=== PATIENT | female | born 1985 | race African-American/Black ===

== ENCOUNTER 2017-04-10 06:57 | Day surgery (SDC) | payer MEDICARE ==
[~2017-04-10] VITALS: Ht 162.6 cm; Wt 134.1 kg
--- NOTE | ~2017-04-10 | OP ---
PATIENT NAME: BARBIE MCKEE MEDICAL RECORD: [id number] :89 LOCATION:[facility] ADMISSION DATE: SURGEON: CHASITY BRADFORD DO DATE OF OPERATION: 04/10/2017 PROCEDURE: Colonoscopy. INDICATIONS FOR PROCEDURE: Change in bowel habits, generalized abdominal pain, constipation, nausea. SCOPE: Olympus video pediatric colonoscope. MEDICATIONS: Propofol 380 mg IV per anesthesia. WITHDRAWAL: 9 minutes. COMPLICATIONS: None. ESTIMATED BLOOD LOSS: None. FINDINGS: Informed consent was given. The patient was made comfortable with the above medication. After reaching an adequate level of sedation by slow IV push, the patient was placed on her left side. A digital rectal examination was performed, which was normal. The endoscope was then advanced under direct visualization through the rectum to the terminal ileum. The scope was slowly withdrawn and mucosa was carefully examined. The prep quality was good. There were no abnormalities visualized on today examination. There were no diverticula seen or polyps. Retroflexion was performed in the rectum with normal-appearing rectal wall. The endoscope was completely withdrawn from the patient. The patient tolerated the procedure well and there were no complications. IMPRESSION: Normal colonoscopy to terminal ileum. PLAN AND RECOMMENDATIONS: 1. Discharge home when recovery parameters are met. 2. High fiber diet. 3. Continue current medications. 4. Supplement diet with 2 tablespoons of Metamucil or psyllium husk fiber daily. 5. Proceed with upper endoscopy as scheduled. TRANSINT:[id number] Voice Confirmation ID: [id number] DOCUMENT ID: [id number] CHASITY BRADFORD DO at 1225 CC: [id number] DICTATION DATE: 04/10/17923 LOAN SECRETARY: 04/10/17 1123 [facility] 04/10/17 [place] [address]
[2017-04-10 07:49] VITALS: BP 127/77; Ht 162.6 cm; Wt 134.1 kg
[2017-04-10 08:01] LABS: HCG URINE NEGATIVE (NEGATIVE)
[2017-04-10 09:01] LABS: HEMATOCRIT 34.1 % (36.0-48.0); HEMOGLOBIN 11.1 g/dL (12-16); MCH 25.8 pg (26.0-34.0); MCHC 32.6 g/dL (31.0-37.0); MCV 79.1 fL (80.0-100.0); MEAN PLATELET VOLUME 10.8 fL (7.4-10.4); RBC 4.31 10x6/uL (4.00-5.40); RDW 14.5 % (11.5-14.5); WBC 7.7 10x3/uL (4.8-10.8)
[2017-04-10 09:04] LABS: CALC OSMOLALITY 271 mosm/kg (275-300); CALCIUM 9.1 mg/dL (8.5-10.1); CARBON DIOXIDE 25.2 mmol/L (21.0-32.0); CHLORIDE - SERUM 102 mmol/L (98-107); CREATININE - SERUM 0.7 mg/dL (0.6-1.3); GLUCOSE 102 mg/dL (74-106); POTASSIUM - SERUM 4.2 mmol/L (3.5-5.1); SODIUM 137 mmol/L (136-145); UREA NITROGEN 6 mg/dL (7-18); eGFR NON AFRICAN AMERICAN > 90 mL/min (90-120)
== END 2017-04-10 10:30 | disposition home or self-care (01) ==
LOC: D.OPS 06:57
PROVIDERS: Anesthesiology; Internal Medicine Gastroenterology
DX: R10.84 Generalized abdominal pain (principal); K59.00 Constipation, unspecified; R11.0 Nausea; Z01.812 Encounter for preprocedural laboratory examination

== ENCOUNTER 2017-04-17 08:39 | Day surgery (SDC) | payer MEDICARE ==
[~2017-04-17] VITALS: Ht 162.6 cm; Wt 134.1 kg
--- NOTE | ~2017-04-17 | OP ---
PATIENT NAME: BARBIE MCKEE MEDICAL RECORD: [id number] :87 LOCATION:[facility] ADMISSION DATE: SURGEON: CHASITY BRADFORD DO DATE OF OPERATION: 04/17/2017 PROCEDURE: EGD with biopsies. INDICATIONS FOR PROCEDURE: Epigastric abdominal pain as well as generalized pain, nausea, constipation. SCOPE: Olympus video gastroscope. MEDICATIONS: Propofol 250 mg IV per anesthesia. ESTIMATED BLOOD LOSS: Minimal. COMPLICATIONS: None. FINDINGS: Informed consent was given. The patient was made comfortable with the above medication. After reaching an adequate level of sedation by slow IV push, the patient was placed on her left side. The endoscope was then advanced under direct visualization through the mouth to the second portion of the duodenum. The upper, middle, and lower thirds of the esophagus appeared normal. At the GE junction, there was mild evidence of LA class A reflux-induced esophagitis. The endoscope was advanced beyond the GE junction into the stomach and retroflexed to view the cardia, where a small sliding type hiatal hernia was present. The fundus, body, antrum, and prepyloric regions of the stomach appeared normal. Random biopsies were taken to submit for histopathology and to rule out H pylori. The endoscope was advanced beyond the pylorus into the duodenum where the bulb, first portion, and second portion of the duodenum appeared normal. The endoscope was then withdrawn from the patient. The patient tolerated the procedure well and there were no complications. IMPRESSION: 1. LA class A reflux induced esophagitis, which is very mild. 2. Small sliding hiatal hernia. PLAN AND RECOMMENDATIONS: 1. Discharge home when recovery parameters are met. 2. Follow up biopsy specimen results. 3. Trial of Zantac 150 mg twice daily for 30 days. 4. Gastric emptying scan regarding the nausea and abdominal pain associated with eating. 5. Follow up in GI clinic in 4 weeks. TRANSINT:[id number] Voice Confirmation ID: [id number] DOCUMENT ID: [id number] OPERATIVE REPORT [id number] BARBIE MCKEE CHASITY BRADFORD DO at 1616 CC: [id number] DICTATION DATE: 04/17/17 1103 ED MANAGER: 04/17/17 1451 [facility] 04/17/[address] [place] [address]
[2017-04-17 10:14] VITALS: Ht 162.6 cm; Wt 134.1 kg
[2017-04-17 10:21] LABS: HEMATOCRIT 40.4 % (36.0-48.0); HEMOGLOBIN 12.8 g/dL (12-16); MCH 25.4 pg (26.0-34.0); MCHC 31.7 g/dL (31.0-37.0); MCV 80.2 fL (80.0-100.0); MEAN PLATELET VOLUME 9.8 fL (7.4-10.4); RBC 5.04 10x6/uL (4.00-5.40); RDW 14.2 % (11.5-14.5); WBC 7.2 10x3/uL (4.8-10.8)
[2017-04-17] MEDS ORDERED: ZANTAC150 MG PO (11:56)
== END 2017-04-17 12:15 | disposition home or self-care (01) ==
LOC: D.OPS 08:39
PROVIDERS: Anesthesiology
DX: R10.13 Epigastric pain (principal); R11.0 Nausea; K59.00 Constipation, unspecified; K21.0 Gastro-esophageal reflux disease with esophagitis; K44.9 Diaphragmatic hernia without obstruction or gangrene; E66.01 Morbid (severe) obesity due to excess calories; Z68.43 Body mass index [BMI] 50.0-59.9, adult; Z01.812 Encounter for preprocedural laboratory examination

== ENCOUNTER → 2017-04-21 12:16 | Outpatient (CLI) | payer MEDICARE ==
[2017-04-17 10:14] VITALS: BMI 50.7
[~2017-04-21 12:16] MED LIST: ZANTAC150 MG PO
== END | disposition home or self-care (01) ==
LOC: D.NM 12:16
DX: R11.0 Nausea (principal)

== ENCOUNTER 2017-07-24 07:58 | Emergency (ER) | payer MEDICARE ==
[2017-04-17 10:14] VITALS: BMI 50.7
== END 2017-07-24 10:52 | disposition home or self-care (01) ==
LOC: D.ER 07:58
DX: G62.9 Polyneuropathy, unspecified (principal); M25.552 Pain in left hip